=== PATIENT | male | born 1985 | race African-American/Black ===

== ENCOUNTER 2021-01-07 02:34 | Emergency (ER) | payer OTHER ==
[~2021-01-07] VITALS: Ht 172.7 cm; Wt 63.5 kg
[2021-01-07 02:47] VITALS: BP 123/73
[2021-01-07] MEDS ORDERED: IBUPROFEN 400 MG TABLET ONE (02:50)
[2021-01-07] MEDS ORDERED: IBUPROFEN 400 MG TABLET PO ONE (03:00)
== END 2021-01-07 02:55 | disposition home or self-care (01) ==
LOC: ER 02:34
DX: M25.551 Pain in right hip (principal); G89.29 Other chronic pain; J45.909 Unspecified asthma, uncomplicated